=== PATIENT | female | born 1995 | race Caucasian/White ===

== ENCOUNTER 2017-06-18 20:30 | Emergency (ER) | payer OTHER ==
[~2017-06-18] VITALS: Ht 162.6 cm; Wt 55.0 kg
[2017-06-18 20:36] VITALS: TEMP 36.6; Ht 162.6 cm; Wt 55.0 kg
[2017-06-18] MEDS ORDERED: DROS1TAB24 PO (21:02)
[2017-06-18] MEDS ORDERED: VYT/1020 PO (21:05)
--- NOTE | 2017-06-18 21:49 | DIAGNOSTIC IMAGING REPORT ---
RIGHT KNEE 3 VIEWS HISTORY: right knee injury COMPARISON: None. FINDINGS: No acute fracture or dislocation. No knee effusion. There is a 6 subchondral lucency within the medial aspect of the medial femoral condyle. The proximal tibia and fibula. Intact. Soft tissues are unremarkable. No radiopaque foreign bodies. IMPRESSION: 1. No acute fracture or dislocation within the right knee. 2. A 6 mm subchondral lucency within the medial aspect of the medial femoral condyle. This may represent an old osteochondral defect. Follow-up nonemergent MRI is recommended for confirmation. Electronically signed by: George Engle M.D. 06/18/2017 9:47 PM Dictated Date/Time: 06/18/2017 9:46 PM
[2017-06-18] MEDS ORDERED: NORCO 5/325MG HOME PACK PO ONE (22:15)
[2017-06-18 22:34] VITALS: BP 127/79; PULSE 72; O2SAT 98
--- NOTE | 2017-06-19 20:46 | EMERGENCY ROOM VISIT NOTE ---
ED Visit Note First contact with patient: 20:38 CHIEF COMPLAINT: knee pain HISTORY OF PRESENT ILLNESS: This 22-year-old female patient presents to the emergency department after sustaining an injury to the right knee after falling last night. The patient denies any other injuries besides their knee. The patient is without significant swelling or bruising. There is pain diffusely. They rate the pain as sharp and 8/10. The patient states they are not comfortably able to walk on it. No numbness or tingling. No previous injuries to this knee. No ankle, foot or hip pain. REVIEW OF SYSTEMS: A 6 system review of systems was completed with positives and pertinent negatives listed in the HPI. ALLERGIES: Penicillin MEDICATIONS: No chronic medications PMH: Otherwise healthy SOCIAL HISTORY: Student and lives locally PHYSICAL EXAM: Vital Signs: Reviewed Nurse's notes, vital signs stable. GENERAL : Female, no acute distress, but appears in pain, well-developed, well- nourished. MENTAL STATUS: Alert, oriented to person place and time, and cooperative. MUSCULOSKELETAL: The right knee is minimally swollen. There is no ecchymosis. There is no joint effusion present. The patient is tender diffusely. There is medial joint line tenderness. The patella does not subluxate. Range of motion is not limited. Strength of the quads and hamstrings is 5/5. Rin's is negative. Jalen's and Anterior Drawer tests are negative. There is no obvious laxity with varus and valgus stressing. The foot and toes are warm and well-perfused. Dorsalis pedis pulse 2+. Sensation to pain and light touch is intact. Capillary refill less than 2 seconds. RIGHT KNEE 3 VIEWS HISTORY: right knee injury COMPARISON: None. FINDINGS: No acute fracture or dislocation. No knee effusion. There is a 6 subchondral lucency within the medial aspect of the medial femoral condyle. The proximal tibia and fibula. Intact. Soft tissues are unremarkable. No radiopaque foreign bodies. IMPRESSION: 1. No acute fracture or dislocation within the right knee. 2. A 6 mm subchondral lucency within the medial aspect of the medial femoral condyle. This may represent an old osteochondral defect. Follow-up nonemergent MRI is recommended for confirmation. EMERGENCY DEPARTMENT COURSE: Physical exam and history were performed. Nursing notes and EMR were reviewed. The patient appears to have injured her right knee after a fall yesterday. X-rays were obtained and read by myself and radiology as above. The patient does not have obvious fracture or dislocation of the knee. She does have an abnormal lucency. I had a lengthy discussion with the patient. She will be placed in a knee immobilizer and given crutches. She needs to follow with orthopedics regarding her injury as well as the lucency. She was given information to assist with this. She was otherwise invited back to the ER with any new, worsening, or concerning symptoms. Current/Historical Medications Scheduled Drospirenone-Ethinyl Estradiol (Tanvi), 1 TAB PO DAILY Ezetimibe/Simvastatin (Vytorin 10MG/20MG), 1 TAB PO QPM Allergies Coded Allergies: Penicillins (Verified Allergy, Severe, FACE SWELLING, REDDENED, "HOT" FEELING ON FACE, 06/18/17) Vital Signs Date Time Temp Pulse Resp B/P (MAP) Pulse Ox O2 Delivery O2 Flow Rate FiO2 06/18/17 22:34 72 18 127/79 98 06/18/17 20:36 36.6 86 18 133/77 98 Room Air Medications Administered Medications (Trade) Dose Ordered Sig/Carmen Route Start Time Stop Time Status Last Admin Dose Admin Acetaminophen/ Hydrocodone Bitart ([place] 5/325mg Home Pack) 1 homepack UD ONCE PO 06/18/17 22:15 06/18/17 22:16 DC 06/18/17 22:31 1 HOMEPACK Departure Information Impression Primary Impression: Injury of right knee Additional Impression: Abnormal x-ray of lower extremity Dispostion Home / Self-Care Condition GOOD Referrals Sonny Foley D.O. Forms HOME CARE DOCUMENTATION FORM, IMPORTANT VISIT INFORMATION Patient Instructions [facility], ED RICE Additional Instructions You were seen and evaluated today on an emergency basis only. This is not a substitute for, or an effort to provide, complete comprehensive medical care. It is not possible to recognize and treat all injuries or illnesses in a single emergency department visit. For this reason it is recommended that you followup with [facility] , Dr. Foley's office, this week for a recheck of your condition. Call the office in the morning and let them know you were seen in the emergency department to help make the appointment. For baseline pain relief you may alternate ibuprofen and acetaminophen every 4 hours for pain control. Take 600 mg ibuprofen (Advil) and then 4 hours later take 1000 mg acetaminophen (Tylenol). Do not take more than 3000 mg acetaminophen in a single day. [place] (hydrocodone/acetaminophen) 5/325 mg (homepack) every 6 hours as needed for worsening breakthrough pain. Do not drink or drive on [place]. This medication will likely make you tired. Do not take [place] and Tylenol at the same time as both contain acetaminophen. [place] may cause constipation. You may wish to take an [id number] stool softener like Colace if this occurs. Wear your knee immobilizer and use your crutches at all times until cleared by orthopedics You are welcome to return to the emergency department anytime with new, worsening, or concerning symptoms. Problem Qualifiers
== END 2017-06-18 22:35 | disposition home or self-care (01) ==
LOC: C.EDB 20:32 → C.EDD 22:35
DX: S89.91XA Unspecified injury of right lower leg, initial encounter (principal); R93.6 Abnormal findings on diagnostic imaging of limbs; Z79.3 Long term (current) use of hormonal contraceptives; Z79.899 Other long term (current) drug therapy; W19.XXXA Unspecified fall, initial encounter